=== PATIENT | male | born 1990 | race Caucasian/White ===

== ENCOUNTER 2020-03-23 21:07 | Emergency (ER) | payer SELFPAY ==
[~2020-03-23] VITALS: Ht 175.3 cm; Wt 134.0 kg
[2020-03-23 21:14] VITALS: Ht 175.3 cm; Wt 134.0 kg
[2020-03-23 21:30] LABS: BASOPHIL % 0.5 % (0-2); PLATELET COUNT 157 x10^3mcL (130-400); RED CELL DISTRIBUTION WIDTH 13.1 % (11.5-14.5)
[2020-03-23 21:47] LABS: CALCIUM 8.4 mg/dL (8.5-10.1); CARBON DIOXIDE 27.5 mmol/L (21-32); CHLORIDE SERUM 103 mmol/L (98-107); CREATININE SERUM 1.1 mg/dL (0.7-1.3); GFR1 > 60 mL/min; GLUCOSE SERUM 92 mg/dL (74-106); POTASSIUM SERUM 3.6 mmol/L (3.5-5.1); SODIUM SERUM 139 mmol/L (136-145)
[2020-03-23 21:52] LABS: ALBUMIN 3.5 g/dL (3.4-5.0); ALKALINE PHOSPHATASE 50 U/L (46-116); ALT/SGPT 203 U/L (16-63); AST/SGOT 102 U/L (15-37); BILIRUBIN TOTAL 0.69 mg/dL (0.20-1.00); LIPASE 135 IU/L (73-393); TOTAL PROTEIN, SERUM 8.4 g/dL (6.4-8.2)
[2020-03-24 01:25] VITALS: BP 124/79
== END 2020-03-24 01:25 | disposition home or self-care (01) ==
LOC: ED 21:07
DX: R11.10 Vomiting, unspecified (principal); R10.13 Epigastric pain; R06.02 Shortness of breath; I51.7 Cardiomegaly; Z20.818 Contact with and (suspected) exposure to other bacterial communicable diseases
CPT/HCPCS: 85378; Q0092; U0003-CS